=== PATIENT | female | born 1940 | race Caucasian/White ===

== ENCOUNTER 2016-10-07 05:10 | Inpatient (IN) | payer OTHER ==
[~2016-10-07] VITALS: Ht 162.6 cm; Wt 100.7 kg
[~2016-10-07 05:10] MED LIST: ALDACTONE100 MG PO; AMLODIPINE BESY10 MG PO; ATORVASTATIN CA80 MG PO; BABY ASPIRIN81 M1 PO; BUSPAR5 MG PO; COREG CR80 MG PO; FENOFIBRATE134 M1 PO; GLAUCOMA EYE DROPS; GLUCOPHAGE1000 MG PO; IRBESARTAN75 MG PO; LO-DOSE ASPIRIN81 M1 PO; MICROZIDE12.5 M1 PO; NEXIUM20 MG PO; NEXIUM40 MG PO; PRINIVIL10 MG PO; SPIRIVA1 INHALATI IH
[2016-10-07] MEDS ORDERED: TYLENOL WITH C1 EACH PO (06:02)
[2016-10-07] MEDS ORDERED: TYLENOL EXTRA500 MG PO (06:02)
[2016-10-07 06:06] VITALS: BP 123/58
[2016-10-07 06:23] LABS: POINT-OF-CARE METER ID UU14174212
[2016-10-07 11:51] LABS: POINT-OF-CARE METER ID UU13113675
[2016-10-07 13:50] VITALS: BP 158/76
[2016-10-07 20:04] VITALS: BP 123/63
[2016-10-07 23:39] VITALS: BP 158/70
[2016-10-08 04:00] VITALS: BP 189/81
[2016-10-08 08:34] VITALS: BP 143/74
[2016-10-08] MEDS ORDERED: BACLOFEN10 MG PO (09:49)
[2016-10-08] MEDS ORDERED: NORCO 5/3251 TABLET PO (09:50)
== END 2016-10-08 10:25 | disposition home or self-care (01) | DRG 460 ==
LOC: 2SOUTH 05:10 → 3EAST 13:10 → 2SOUTH 14:10 → 3EAST 10-08 10:25
PROVIDERS: Neurological Surgery
DX: M51.16 Intervertebral disc disorders with radiculopathy, lumbar region (principal); M43.16 Spondylolisthesis, lumbar region; I10 Essential (primary) hypertension; E11.9 Type 2 diabetes mellitus without complications; E78.00 Pure hypercholesterolemia, unspecified; K21.9 Gastro-esophageal reflux disease without esophagitis; Z79.84 Long term (current) use of oral hypoglycemic drugs
CPT/HCPCS: 72100; 76000; 82948; C1713; J0131; J0690; J1100; J1170; J2250; J2270; J2405; J3010; J3370; J3480; S0020